=== PATIENT | female | born 1965 | race Caucasian/White ===

== ENCOUNTER 2018-12-21 08:37 | Emergency (ER) | payer BC ==
[~2018-12-21] VITALS: Ht 157.5 cm; Wt 64.0 kg
[2018-12-21 08:42] VITALS: Ht 157.5 cm; Wt 64.0 kg
[2018-12-21 10:36] LABS: microscopic required? NO
[2018-12-21 11:04] LABS: UA SPECIFIC GRAVITY 1.015 (1.005-1.035); urine erythrocyte NEGATIVE (NEGATIVE)
[2018-12-21 11:10] LABS: AMPHETAMINE QUAL UR NONE DETECTED (See below)
[2018-12-21 11:16] LABS: BASOPHIL % 0.1 % (0-2); PLATELET COUNT 214 x10^3mcL (130-400); RED CELL DISTRIBUTION WIDTH 13.6 % (11.5-14.5)
[2018-12-21 11:36] LABS: ALBUMIN 3.8 g/dL (3.4-5.0); ALKALINE PHOSPHATASE 98 U/L (46-116); ALT/SGPT 51 U/L (14-59); AST/SGOT 28 U/L (15-37); BILIRUBIN TOTAL 0.34 mg/dL (0.20-1.00); CALCIUM 8.8 mg/dL (8.5-10.1); CARBON DIOXIDE 26.9 mmol/L (21-32); CHLORIDE SERUM 104 mmol/L (98-107); CREATININE SERUM 0.7 mg/dL (0.6-1.0); GFR1 > 60 mL/min; GLUCOSE SERUM 126 mg/dL (74-106); LIPASE 107 IU/L (73-393); SODIUM SERUM 140 mmol/L (136-145); T4(THYROXINE) 12.9 ug/dL (4.7-13.3); TOTAL PROTEIN, SERUM 8.1 g/dL (6.4-8.2)
[2018-12-21 11:37] LABS: CHOLESTEROL 256 mg/dL (<200); HDL CHOLESTEROL 76 mg/dL (40-60)
[2018-12-21 14:28] VITALS: BP 112/71
== END 2018-12-21 14:29 | disposition home or self-care (01) ==
LOC: ED 08:37
PROVIDERS: Emergency Medicine
DX: R11.10 Vomiting, unspecified (principal); R19.7 Diarrhea, unspecified; E03.9 Hypothyroidism, unspecified; B19.20 Unspecified viral hepatitis C without hepatic coma; Z98.890 Other specified postprocedural states
CPT/HCPCS: 83880; 87046; 87046-59; J0500; J2405; J2765; J3490; J7030